=== PATIENT | female | born 1955 | race Caucasian/White ===

== ENCOUNTER → 2017-02-11 | Outpatient (CLI) | payer BC ==
[~2017-02-11] MED LIST: [UNRECOGNIZED DRUG - OTHER]
== END ==
LOC: MC.RAD 02-01 07:20
DX: Z12.31 Encounter for screening mammogram for malignant neoplasm of breast (principal)

== ENCOUNTER → 2018-09-11 | Outpatient (CLI) | payer BC | LOC: MC.RAD 07:39 | DX: Z12.31 Encounter for screening mammogram for malignant neoplasm of breast (principal) ==

== ENCOUNTER 2019-11-27 22:06 | Emergency (ER) | payer BC ==
[~2019-11-27] VITALS: Ht 162.6 cm; Wt 75.0 kg
[2019-11-27 22:12] VITALS: BP 140/75; PULSE 98; TEMP 97.6
[2019-11-27] MEDS ORDERED: LIPITOR20 MG PO (22:13)
== END 2019-11-27 22:25 | disposition left against medical advice (07) ==
LOC: COL.ER 22:06
DX: S61.411A Laceration without foreign body of right hand, initial encounter (principal); W54.0XXA Bitten by dog, initial encounter

== ENCOUNTER 2022-09-09 15:27 | Emergency (ER) | payer SELFPAY ==
[~2022-09-09] VITALS: Ht 162.6 cm; Wt 72.7 kg
[~2022-09-09 15:27] MED LIST changes: +LIPITOR20 MG PO
[2022-09-09 17:57] VITALS: BP 158/79; PULSE 64; TEMP 97.5
== END 2022-09-09 17:57 | disposition home or self-care (01) ==
LOC: COL.ER 15:27
DX: S09.90XA Unspecified injury of head, initial encounter (principal); W01.198A Fall on same level from slipping, tripping and stumbling with subsequent striking against other object, initial encounter

== ENCOUNTER 2024-02-17 05:29 | Day surgery (SDC) | payer BC ==
[~2024-02-17] VITALS: Ht 162.6 cm; Wt 75.9 kg
[~2024-02-17 05:29] MED LIST changes: +ASPIRIN 81M81 MG/TA2 PO; +BREO IH; +CEPHALEXIN500 M1 PO; +LR 1,000 ML IV SCH; +NORCO 325 MG-51 TAB PO; +PROAIR HFA0.09 MG/AC IH
[2024-02-17] MEDS ORDERED: fentaNYL 50 MCG/ML 2 ML VIAL ONE (06:43)
[2024-02-17 06:44] VITALS: BP 106/90; PULSE 73; TEMP 97
[2024-02-17] MEDS ORDERED: Lidocaine PF 2% (20 MG/ML) 5 ML VIAL ONE (06:44)
[2024-02-17] MEDS ORDERED: Ondansetron 4 MG/2 ML VIAL ONE (07:29)
[2024-02-17] MEDS ORDERED: dexAMETHasone 10 MG/ML VIAL ONE (07:29)
[2024-02-17] MEDS ORDERED: Morphine 2 MG/1 ML VIAL [PACU/SDC ONLY] IV PRN (07:45)
[2024-02-17] MEDS ORDERED: droPERidol 2.5 MG/ML 2 ML VIAL IV PRN (07:45)
[2024-02-17] MEDS ORDERED: Ondansetron 4 MG/2 ML VIAL IV PRN (07:45)
[2024-02-17] MEDS ORDERED: fentaNYL 50 MCG/ML 1 ML SYRINGE/VIAL [PACU/SDC ONLY] IV PRN (07:45)
[2024-02-17] MEDS ORDERED: HYDROmorphone 1 MG/1 ML SYRINGE [PACU/SDC ONLY] IV PRN (07:45)
[2024-02-17] MEDS ORDERED: Meperidine 50 MG/ML 1 ML VIAL IV PRN (07:45)
[2024-02-17] MEDS ORDERED: Lidocaine 1% w EPI (1:100,000) 20 ML Multi-Dose VIAL SQ ONE (08:10)
[2024-02-17] MEDS ORDERED: EPINEPHrine 1 MG/1 ML Ampule IR ONE (08:10)
[2024-02-17] MEDS ORDERED: dexAMETHasone 4 MG/ML VIAL IJ ONE (08:10)
[2024-02-17] MEDS ORDERED: ASPIRIN 81M81 MG/TA2 PO (08:23)
[2024-02-17] MEDS ORDERED: CEPHALEXIN500 M1 PO (08:23)
[2024-02-17] MEDS ORDERED: NORCO 325 MG-51 TAB PO (08:24)
[2024-02-17] MEDS ORDERED: Naloxone 0.4 MG/ML VIAL IV PRN (08:30)
[2024-02-17] MEDS ORDERED: Morphine 4 MG/ML VIAL IV PRN (08:30)
[2024-02-17] MEDS ORDERED: oxyCODONE 5 MG TAB PO PRN (08:30)
[2024-02-17] MEDS ORDERED: Celecoxib 200 MG CAP PO SCH (09:00)
[2024-02-17] MEDS ORDERED: Acetaminophen 500 MG TAB PO SCH (09:21)
[2024-02-17 09:30] VITALS: BP 126/73; PULSE 65; TEMP 96.8
[2024-02-17 09:45] VITALS: BP 109/70; PULSE 56
--- NOTE | 2024-02-17 09:50 | NUR ---
Patient returns to [facility] via cart. Bedside handoff received from TESS Humphrey. VSS. Oxygen on at 1L/NC. Chocolate pudding and water given. Daughter at bedside. Pt reports pain is 2/10 but would like to take oral medications to prepare for her trip home. See [facility] for medications. Dressing to right knee is CDI, RLE elevated on pillows, ice pack to right knee. Call light within reach, cart in low position.
[2024-02-17 10:00] VITALS: BP 109/58; PULSE 73
--- NOTE | 2024-02-17 10:12 | NUR ---
Pt drinking diet pepsi, less drowsy between disturbances. Reports pain is tolerable at 2/10.
[2024-02-17 10:15] VITALS: BP 106/63; PULSE 58
--- NOTE | 2024-02-17 10:44 | NUR ---
Dischrage instruction and education reviewed at 1020. Pt up to get dressed at 1025. After getting dressed patient reports feeling a little "woozy and nauseated" Requested rodo. Given at 1040.
--- NOTE | 2024-02-17 11:10 | NUR ---
Pt reports she is ready to discharge at 1055, daughter agreeable. IV site removed at that time. Pt down to daughters car via w/c at 1100, accompanied by TESS Green. Denies complaints at that time. Dressing to right knee is CDI, CMS within normal limits, belongings sent with patient.
== END 2024-02-17 11:00 | disposition home or self-care (01) ==
LOC: SDCO 05:29
PROVIDERS: Orthopaedic Surgery
DX: S83.241A Other tear of medial meniscus, current injury, right knee, initial encounter (principal); M94.8X6 Other specified disorders of cartilage, lower leg
CPT/HCPCS: J0171; J0665; J0690; J1100; J1171; J2405; J2704; J3010; J7120